=== PATIENT | female | born 1950 | race Caucasian/White ===

== ENCOUNTER → 2021-12-23 13:11 | Outpatient (CLI) | payer MEDICARE, SELFPAY | PROVIDERS: PCP Family Medicine; Visit Provider Internal Medicine | DX: R00.1 Bradycardia, unspecified (principal); R94.31 Abnormal electrocardiogram [ECG] [EKG]; E11.69 Type 2 diabetes mellitus with other specified complication; E78.5 Hyperlipidemia, unspecified; Z86.79 Personal history of other diseases of the circulatory system | CPT/HCPCS: 93225; 93226 ==

== ENCOUNTER → 2022-01-05 07:42 | Outpatient (CLI) | payer MEDICARE, SELFPAY ==
--- NOTE | 2022-01-05 | CA_ITS ---
APPROVED REPORT Exam: Pharmacologic Technologist: Cherie Huff Ht: 5 ft 4 in Wt: 261 lbs BSA: 2.19 m2 HR: 49 bpm BP: 121/54 mmHg Indications: Abnormal ekg Medical History Medications: Atorvastatin,,,,, Citalopram,,,,, Nexium,,,,, Calcium,,,,, Vitamin D3-Vitamin K,,,,, Stress Test Details Test: LEXISCAN HR Resting HR: 49 bpm Max Heart Rate (APMHR): 150.390391 bpm Max HR Achieved: 71 bpm Target HR (85% APMHR): 127.000715 bpm % of APMHR: 47.33 Recovery HR: 55 bpm BP Resting BP: 121.0/54.0 mmHg Max BP: 130.0/52.0 mmHg Recovery BP: 126.0/54.0 mmHg ECG Resting ECG: Sinus bradycardia, short OR interval, PAC Clinical Exercise duration: 04:14 min Highest Stage Achieved: Exercise capacity: 1.0 METs Stress ECG Conclusion Symptoms: Shortness of air, posterior neck discomfort, brief pain in left jaw. Arrhythmias/Ectopy: None ST-T Changes: No significant changes. Conclusion: Unremarkable Lexiscan stress. Myoview images reported separately. Test Summary REST . . . . . . . Resting REST 00:37 . . 49 . 121/ 54 . . Stage 1 . . . . . . . Myoview Injected Stage 1 01:00 . . 69 . . . . Stage 2 . . . . . . . chest tightness Stage 2 01:00 . . 60 . . . . Stage 3 01:00 . . 55 . 130/ 52 . . Stage 4 01:00 . . 52 . 122/ 53 . . Stage 4 01:14 . . 52 . 120/ 58 . Stop exercise at 04:14 RECOVERY 01:00 . . 51 . . . . RECOVERY 02:00 . . 54 . 121/ 56 . . RECOVERY 03:00 . . 55 . 126/ 54 . . RECOVERY 03:19 . . 54 . 126/ 54 . . Electronically signed by : Benny Lynch MD 01/05/2022 19:35:25
--- NOTE | 2022-01-05 07:42 | NM_ITS ---
APPROVED REPORT Exam: Nuclear Stress Test Indication: Abnormal EKG, DM, High cholesterol Patient Location: Outpatient Stress Tech: Cherie Huff NM Tech:Shae Schrader, ARRT, RT (R)(N) Ht: 5 ft 4 in Wt: 260 lbs Bra Size: 48D HR: 49 bpm BP: 121/54 mmHg BSA: 2.19 m2 BMI: 44.6 History: Abnormal EKG, DM, High cholesterol Procedure: Patient received a 0.4 mg of intravenous Lexiscan, resting heart rate 49 bpm, resting blood pressure 121/54 mmHg, with Lexiscan maximum heart rate achived was 71 bpm which is Less than 85 % of the maximum predicted heart rate and blood pressure was 130/52 mmHg. With Lexiscan, patient denied any complaint of chest pain. Electrocardiogram Resting electrocardiogram shows sinus rhythm, with Lexiscan there is less than 1.[address] segment depression noted from the baseline EKG. The EKG portion of the Lexiscan is nondiagnostic. Cardiac Stress and Resting SPECT Images: Cardiac Stress and Resting SPECT images were obtained using technetium 99m Myoview 29.4 mCi stress and 9.97 mCi at rest. Patient unable to lay on stomach for prone images due to hip pain. Gated SPECT for analysis of segmental wall motion and calculation of the ejection fraction also done. Cardiac stress and respiratory show fixed defect in the anterior wall with normal contractility gated SPECT is likely secondary to soft tissue attenuation, however there is marked transient ischemic dilatation of the left ventricle seen raising the concerns for presence of balanced ischemia. Right ventricle is mildly enlarged with normal contractility. Computer derived ejection fraction is 53% with no regional wall motion abnormality. Conclusion: 1. The EKG portion of the Lexiscan is nondiagnostic. 2. No scintigraphic evidence of reversible ischemia seen, fixed defect in the anterior wall is likely secondary to soft tissue attenuation, however there is marked transient ischemic dilatation of the left ventricle seen, raising the concerns for presence of balanced ischemia and multivessel coronary disease, right ventricle is mildly enlarged with normal contractility. Computer derived ejection fraction is 53% with no regional wall motion abnormality. 3. Abnormal Lexiscan Myoview study. Electronically signed by : Benny Lynch MD 01/05/2022 19:51:21
--- NOTE | 2022-01-05 09:57 | HMH.ITSHM ---
Current Home Medications as stated by this patient Shaista Melton or hvac sales representative. []ESOMEPRAZOLE CITALOPRAM CALCIUM ATORVASTATIN
--- NOTE | 2022-01-05 10:04 | CA_ITS ---
APPROVED REPORT EXAM: Comprehensive 2D, Doppler, and color-flow Echocardiogram Licensed Electrician: Christine Spencer RVT Ht: 5 ft 4 in Wt: 261lbs BSA: 2.19 BP: 121/53 mmHg Indications: ABN EKG,HX WPW SYNDROME,DM,HTN,HLD,BRADYCARDIA 2D Dimensions LVOT 2.28 cm (M/F) 1.5-2.5 LA Volume 49.40 mL LA Volume Index 22.55 mL/m2 (M/F) 16-34 M-Mode Dimensions RVDd 2.42 cm (0.9-2.6) LA Diam 4.15 cm (1.9-4.0) LVDd 5.73 cm (3.5-5.7) Ao Diam 2.96 cm (2.0-3.7) LVDs 4.20 cm (3.5-5.7) IVSd 0.76 cm (0.6-1.1) PWd 1.02 cm (0.6-1.1) EF (Teich) 51.50% FS 26.70% EDV (Teich) 162.00 mL TAPSE 1.44 (<1.7) ESV (Teich) 78.60 mL LV Diastology E Decel Time 220.00 (160-240 msec) E/A Ratio 1.3 MED E' 7.00 (< 7 cm/sec) E'/MED E' Ratio 13.31 (>14) LAT E' 8.40 (<10 cm/sec) E/LAT E' Ratio 11.10 (>14) Aortic Valve AO Peak GR. 5.30 mmHg Mitral Valve MV E Max Lenny. 93.00 (40-130 cm/s) MV A Velocity 73.00 (40-130 cm/s) E/A Ratio 1.27 MV Decel. Time 220.00 (160-240 ms) MV PHT 64.00 ms Pulmonary Valve PV Peak Velocity 87.00 (50-150 cm/s) Left Ventricle Left atrium is normal size left ventricle is normal size, visually estimated ejection fraction 55% with no regional wall motion abnormality, diastolic parameters are inconclusive. Right Ventricle Right atrium and right ventricle are normal size and contractility. Aortic Valve Aortic valve is minimally thickened and fibrosed, there is no aortic stenosis or aortic insufficiency. Mitral Valve Mitral valve grossly normal, there is trace mitral regurgitation. Tricuspid Valve Tricuspid valve grossly normal, there is trace tricuspid regurgitation, tricuspid regurgitation jet velocity is inadequate for calculation of the right ventricular systolic pressure. Pulmonic Valve Pulmonic valve is poorly visualized. Great Vessels Aortic root is normal size. Inferior vena cava normal size normal inspiratory collapse. Pericardium No significant pericardial effusion. Conclusion 1. Normal left ventricular size, preserved left ventricular systolic function, visually estimated ejection fraction 55% with no regional wall motion abnormality, diastolic parameters are inconclusive for the study. 2. Trace mitral and tricuspid regurgitation. 3. No significant pericardial effusion. 4. Inferior vena cava normal size with normal inspiratory collapse. Electronically signed by : Benny Lynch MD 01/05/2022 19:08:56
== END ==
PROVIDERS: PCP Family Medicine; Visit Provider Internal Medicine
DX: E78.5 Hyperlipidemia, unspecified; R00.1 Bradycardia, unspecified; R94.31 Abnormal electrocardiogram [ECG] [EKG]; Z86.79 Personal history of other diseases of the circulatory system; E11.69 Type 2 diabetes mellitus with other specified complication
CPT/HCPCS: 78452; 93017; 93306; A9502; J2785

== ENCOUNTER 2022-01-22 07:19 | Day surgery (SDC) | payer MEDICARE, SELFPAY ==
[2022-01-22] VITALS (14 sets, daily range): BP systolic 100–146; BP diastolic 51–72; PULSE 44–66; RESP 16–19; TEMP 36.9; O2SAT 95–100; BMI 45.3
--- NOTE | 2022-01-22 07:27 | IR_ITS ---
APPROVED REPORT Patient Location: Outpatient Tunnel Miner: MERCED Madsen RT (R) PROCEDURES Left heart catheterization Left ventriculogram Selective coronary angiogram INDICATION Abnormal Myoview, Angina pectoris, Risk factors for coronary disease, Informed consent was obtained prior to the procedure. COMPLICATIONS NONE Estimated Blood Loss: LESS THAN 10 ML TECHNIQUE One percent lidocaine used to anesthetize the right anterior aspect of the wrist. The right radial artery was accessed via the Seldinger technique. A 6 Ivorian sheath was placed in the right radial artery. 2.5 mg of verapamil, 800 mcg of nitroglycerin, 1mg Lidocaine and 5000 U Heparin were given through the arterial sheath. The papa catheter was also used to perform left heart catheterization, left ventriculogram and selective coronary angiogram. At the end of the procedure the sheath was removed good hemostasis was achieved using Traclet band, patient was transferred to the postop holding area in stable condition. ANGIOGRAPHIC RESULTS The left main artery Normal The left anterior descending artery The initial injection had YANELI II flow however subsequent injections had YANELI-3 flow with mild 10% luminal irregularities The circumflex artery Dominant normal The right coronary artery Nondominant yet still large with mild diffuse 10% luminal irregularities The HADDAD ventriculogram reveals Slightly hyperdynamic at 70% The left ventricular end-diastolic pressure 20-25 mmHg IMPRESSION Slow flow down the coronary arteries consistent with endothelial dysfunction Mild nonflow limiting coronary artery disease with a component of diastolic dysfunction PLAN 1. Treatment of diastolic dysfunction and endothelial dysfunction which should complete alleviate patient's symptoms 2. Risk factor modification Electronically signed by : Martin Betancur MD 01/22/2022 10:21:32
== END 2022-01-22 13:41 | disposition home or self-care (01) ==
LOC: CATHLAB 07:20
PROVIDERS: PCP Family Medicine; Visit Provider Internal Medicine
DX: E11.69 Type 2 diabetes mellitus with other specified complication (principal); E66.01 Morbid (severe) obesity due to excess calories; E78.2 Mixed hyperlipidemia; R00.1 Bradycardia, unspecified; R94.31 Abnormal electrocardiogram [ECG] [EKG]; R94.39 Abnormal result of other cardiovascular function study; Z68.42 Body mass index [BMI] 45.0-49.9, adult; Z86.79 Personal history of other diseases of the circulatory system; I25.118 Atherosclerotic heart disease of native coronary artery with other forms of angina pectoris; I45.6 Pre-excitation syndrome
CPT/HCPCS: 93458; 99152; C1725; C1769; J1644; J2405; Q9967

== ENCOUNTER 2024-03-12 14:36 | Outpatient (CLI) | payer MEDICARE, SELFPAY ==
[2024-03-12 15:00] LABS: Basophils # 0.1 K/mm3 (0-0.2); Basophils % 0.8 % (0.1-2.0); Eosinophils # 0.3 K/mm3 (0.0-0.4); Eosinophils % 3.4 % (0.1-12.0); Hematocrit 42.8 % (37.0-47.0); Hemoglobin 14.2 g/dL (12.2-16.2); Lymphocytes % 40.3 % (10-50); Mean Corpuscular HGB Conc 33.2 g/dL (31.8-35.4); Mean Corpuscular Hemoglobin 31.1 pg (27.0-31.2); Mean Corpuscular Volume 93.7 fl (81-99); Monocytes # 0.4 K/mm3 (0.1-1.0); Monocytes % 5.5 % (1.7-9.3); Neutrophils # 3.7 K/mm3 (1.8-7.8); Platelet Count 218 K/mm3 (142-424); Red Blood Count 4.56 M/mm3 (4.20-5.40); Red Cell Distribution Width 14.5 % (11.5-17.5); White Blood Count 7.4 K/mm3 (4.8-10.8)
[2024-03-12 16:00] LABS: Alanine Aminotransferase 20 U/L (12-78); Albumin Level 4.4 g/dl (3.5-5.0); Alkaline Phosphatase 81 U/L (38-126); Anion Gap 8.7 mEq/L (5-15); Aspartate Amino Transferase 27 U/L (14-36); Bilirubin,Direct 0.3 mg/dl (0.0-0.4); Bilirubin,Indirect 0.4 mg/dL (0.0-0.9); Bilirubin,Total 0.7 mg/dl (0.2-1.3); Bilirubin,Unconjugated 0.4 mg/dL (0.0-1.1); Blood Urea Nitrogen 17 mg/dl (7-17); Calcium 9.5 mg/dl (8.4-10.2); Carbon Dioxide 32 mmol/L (22.0-30.0); Chloride 106 mmol/L (98-107); Cholesterol 192 mg/dl (140-200); Estimated Glomerular Filt Rate 71 ml/min (>60); GFR (African American) 85 ML/MIN (>60); Glucose 106 mg/dl (74-100); HDL Cholesterol 65 mg/dl (40-60); Magnesium 2.1 mg/dl (1.6-2.3); Potassium 4.7 mmoL/L (3.5-5.1); Sodium 142 mmol/L (136-145); Total Protein,Serum 7.1 g/dl (6.3-8.2); Triglycerides 194 mg/dl (30-150); VLDL Cholesterol 39 mg/dL (0-40)
[2024-03-12 16:20] LABS: Free T4 (Free Thyroxine) 0.92 ng/dl (0.78-2.19)
[2024-03-12 16:34] LABS: Thyroid Stimulating Hormone 0.02 uIU/mL (0.465-4.68)
== END 2024-03-12 23:59 | disposition home or self-care (01) ==
LOC: LAB 14:38
PROVIDERS: Visit Provider Nurse Practitioner
DX: R00.2 Palpitations (principal); R06.00 Dyspnea, unspecified; I25.10 Atherosclerotic heart disease of native coronary artery without angina pectoris; E66.01 Morbid (severe) obesity due to excess calories; Z68.42 Body mass index [BMI] 45.0-49.9, adult; E78.2 Mixed hyperlipidemia; Z86.79 Personal history of other diseases of the circulatory system; E78.5 Hyperlipidemia, unspecified; I10 Essential (primary) hypertension
CPT/HCPCS: 36415; 80048; 80061; 80076; 83735; 84439; 84443; 85025; 93270

== ENCOUNTER 2024-03-23 06:46 | Outpatient (CLI) | payer MEDICARE, SELFPAY ==
--- NOTE | 2024-03-23 | CA_ITS ---
APPROVED REPORT Exam: Pharmacologic Technologist: Sarahi Garcia, Ht: 5 ft 4 in Wt: 277 lbs BSA: 2.25 m2 HR: 57 bpm BP: 133/50 mmHg Rhythm: NSR Medical History Medications: Aspirin,,,,, Citalopram,,,,, Buspirone,,,,, Nexium,,,,, Lipitor,,,,, Ezetimbe,,,,, Cardiac Risk Factors: Hyperlipidemia, Diabetes (non-insulin) Stress Test Details Test: LEXISCAN HR Resting HR: 79 bpm Max Heart Rate (APMHR): 148 bpm Max HR Achieved: 82 bpm Target HR (85% APMHR): 126 bpm % of APMHR: 55 Recovery HR: 62 bpm BP Resting BP: 133/50 mmHg Max BP: 140/53 mmHg Recovery BP: 128.0/55.0 mmHg ECG Resting ECG: sinus bradycardia, frequent PACs, PVCs, low voltage QRS, short NC interval Stress ECG: No significant ST changes Arrhythmia: PACs, PVCs Clinical Exercise duration: 03:59 min Highest Stage Achieved: Stress ECG Conclusion During lexiscant pt experinced mild SOA and head discomfort. No CP noted. Frequent PACs and PVCs. No signfiicant ST changes. Conclusion: Unremarkable lexiscan stress. Myoview images reported separately. Test Summary REST . . . . . . . Sitting REST 03:56 . . 79 . 133/ 50 . . Stage 1 01:00 . . 72 . . . . Stage 2 01:00 . . 70 . . . . Stage 3 01:00 . . 61 . 140/ 53 . . Stage 4 00:59 . . 61 . 133/ 53 . Stop exercise at 03:59 RECOVERY 01:00 . . 59 . 119/ 55 . . RECOVERY 02:00 . . 62 . 119/ 55 . . RECOVERY 03:00 . . 59 . 128/ 55 . . RECOVERY 03:24 . . 57 . 128/ 56 . . Electronically signed by : Rebeca Lacy MD 03/27/2024 11:33:00
--- NOTE | 2024-03-23 06:47 | CA_ITS ---
APPROVED REPORT EXAM: Comprehensive 2D, Doppler, and color-flow Echocardiogram Toaster Element Repairer: Piper Hummel CRT Ht: 5 ft 4 in Wt: 277lbs BSA: 2.25 BP: 130/60 mmHg Indications: abn ekg, WPW, DM, HTN, HLD PREOP HIP 2D Dimensions LA Volume 59.80 mL LA Volume Index 26.00 mL/m2 (M/F) 16-34 M-Mode Dimensions RVDd 2.64 cm (0.9-2.6) LA Diam 3.99 cm (1.9-4.0) LVDd 5.68 cm (3.5-5.7) LVDs 3.89 cm (3.5-5.7) IVSd 1.79 cm (0.6-1.1) PWd 1.12 cm (0.6-1.1) EF (Teich) 58.80% FS 31.50% EDV (Teich) 158.80 mL TAPSE 2.32 (<1.7) ESV (Teich) 65.50 mL LV Diastology E Decel Time 257 (160-240 msec) E/A Ratio 1.17 MED A' 10.50 cm/s LAT A' 5.50 cm/s Aortic Valve AO Peak GR. 7.30 mmHg Mitral Valve MV A Velocity 66.0 (40-130 cm/s) E/A Ratio 1.17 Pulmonary Valve PV Peak Velocity 93.0 (50-150 cm/s) Tricuspid Valve TR P. Velocity 158.00 cm/s RAP Estimate 10.00 mmHg RVSP 20.00 mmHg Left Ventricle The left ventricle is normal size. The left ventricular systolic function is normal. The left ventricular ejection fraction is within the normal range. There is increased LV wall thickness. There is normal LV segmental wall motion. The left ventricular diastolic function is normal. LVEF is 55% Right Ventricle The right ventricle is normal size. The right ventricular systolic function is normal. Atria The left atrium is mildly dilated. The right atrium is mildly dilated. There is no Doppler evidence of interatrial shunt. Aortic Valve The aortic valve is mildly thickened. There is no aortic valvular stenosis. Trace aortic regurgitation. Mitral Valve The mitral valve is normal in structure. No evidence of mitral valve stenosis. Trace mitral regurgitation. Tricuspid Valve The tricuspid valve leaflets are thin and pliable. Trace tricuspid regurgitation. There is insufficient TR jet to estimate RVSP. Pulmonic Valve The pulmonary valve is normal in structure. Trace pulmonic regurgitation. Great Vessels The aortic root is normal in size. The ascending aorta is not well visualized. IVC is normal in size and collapses >50% with inspiration. Pericardium There is no pericardial effusion. Other Information Study Quality: Fair Conclusion Normal biventricular systolic function. Mild biatrial dilation. No significant valvular stenosis or regurgitation. Electronically signed by : Rebeca Lacy MD 03/27/2024 18:27:22
--- NOTE | 2024-03-23 06:49 | NM_ITS ---
APPROVED REPORT Exam: Nuclear Stress Test Indication: OBESITY, HYPERLIPIDEMIA, FATIGUE, PRE-OP Patient Location: Outpatient Stress Tech: Sarahi FREIRE Tech:Randa Brunner TERRIDiane RT (R)(N)(M) Ht: 5 ft 4 in Wt: 275 lbs Bra Size: C HR: 79 bpm BP: 133/50 mmHg BSA: 2.24 m2 TID: 1.62 BMI: 47.1 History: OBESITY, HYPERLIPIDEMIA, FATIGUE, PRE-OP PT COULD NOT LAY ON STOMACH FOR PRONE IMAGES Procedure: Patient received 0.4 mg of intravenous Lexiscan, resting heart rate 79 bpm, resting blood pressure 133/50 mmHg, with Lexiscan maximum heart rate achieved was 82 bpm which is % of the maximum predicted heart rate and blood pressure was 140/53 mmHg. With Lexiscan, patient denied any complaint of chest pain. Cardiac Stress and Resting SPECT Images: Cardiac Stress and Resting SPECT images were obtained using technetium 99m Myoview 32.1 mCi stress and 10.14 mCi at rest. The patient could not lie on her abdomen. Therefore, prone stress imaging could not be performed. This may affect the diagnostic interpretation of the study findings. Resting and stress imaging in supine positions demonstrate no evidence of fixed or reversible perfusion defects. There is increased transient ischemic dilatation ratio (TID 1.62), suggestive of possible multivessel disease or balanced ischemia. Gated imaging demonstrates normal global and regional LV systolic function. LVEF is calculated at 61%. Conclusion: No evidence of fixed or reversible perfusion defects. There is increased transient ischemic dilatation ratio (TID 1.62), suggestive of possible multivessel disease or balanced ischemia. Gated imaging demonstrates normal global and regional LV systolic function. LVEF is calculated at 61%. Electronically signed by : Rebeca Lacy MD 03/27/2024 11:34:47
[2024-03-23] MEDS: SODIUM CHLORIDE 0.9% 10ML SYR (RAD ONLY) 10 ML IV ×2 (07:30→09:00)
[2024-03-23] MEDS: REGADENOSON 0.4MG/5ML SYRINGE 0.400000000000000022 MG IV (09:00)
[2024-03-23] MEDS: ISOTOPE MYOVIEW (PER STUDY) 1 DOSE IV (09:54)
== END 2024-03-23 23:59 | disposition home or self-care (01) ==
LOC: RAD 06:46
PROVIDERS: Visit Provider Nurse Practitioner
DX: R00.2 Palpitations (principal); R06.00 Dyspnea, unspecified; R94.31 Abnormal electrocardiogram [ECG] [EKG]
CPT/HCPCS: 78452; 93017; 93018; 93306; A9502; J2785

== ENCOUNTER 2024-04-24 08:00 | Day surgery (SDC) | payer MEDICARE, SELFPAY ==
[2024-04-24] VITALS (13 sets, daily range): BP systolic 92–182; BP diastolic 39–83; PULSE 41–58; RESP 16–18; TEMP 36.6–36.8; O2SAT 92–100; BMI 104.4; BMI 47.3
--- NOTE | 2024-04-24 07:08 | IR_ITS ---
APPROVED REPORT Patient Location: Outpatient PROCEDURES Left heart catheterization Left ventriculogram Selective coronary angiogram INDICATION Preoperative evaluation, Abnormal stress test Informed consent was obtained prior to the procedure. COMPLICATIONS NONE Estimated Blood Loss: LESS THAN 10 ML TECHNIQUE One percent lidocaine used to anesthetize the right anterior aspect of the wrist. The right radial artery was accessed via the Seldinger technique. A 6 Greek sheath was placed in the right radial artery. 2.5 mg of Verapamil, 800 mcg of nitroglycerin, 1mg Lidocaine and 5000 U Heparin were given through the arterial sheath. The papa catheter was also used to perform left heart catheterization, left ventriculogram and selective coronary angiogram. At the end of the procedure the sheath was removed good hemostasis was achieved using Traclet band, patient was transferred to the postop holding area in stable condition. ANGIOGRAPHIC RESULTS The left main artery Normal The left anterior descending artery Mild proximal and mid vessel 10% luminal regularities The circumflex artery Dominant mild 10% luminal irregularities The right coronary artery Nondominant mild 10% luminal irregularities The HADDAD ventriculogram reveals Normal 65% The left ventricular end-diastolic pressure 20 mmHg IMPRESSION Mild nonflow limiting luminal regularities as described above Normal ejection fraction Mildly elevated LVEDP PLAN 1. Patient is alone acceptable risk to proceed with elective hip surgery 2. Continue medical management Electronically signed by : Martin Betancur MD 04/24/2024 10:46:20
[2024-04-24] MEDS: LIDOCAINE 1% 10ML MDV 20 ML IJ (10:30)
[2024-04-24] MEDS: HEPARIN 1,000 UNITS/ML 10ML VIAL (CATH LAB) 10000 UNIT IV (10:30)
[2024-04-24] MEDS: HEPARIN 1,000 UNITS/500ML NS (CATH LAB) 3000 UNIT IV (10:30)
[2024-04-24] MEDS: 0.9 % SODIUM CHLORIDE 500 ML 25 ML IV (10:30)
[2024-04-24] MEDS: NITROGLYCERIN 800MCG/8ML SYR (CATH LAB) 800 MCG IA (10:31)
[2024-04-24] MEDS: diphenhydrAMINE 50MG/ML VIAL 50 MG IV (10:31)
[2024-04-24] MEDS: VERAPAMIL 2.5MG/ML 2ML VIAL 2.5 MG IV (10:31)
[2024-04-24 10:37] LABS: Basophils % 0.5 % (0.1-2.0); Eosinophils # 0.1 K/mm3 (0.0-0.4); Eosinophils % 1.3 % (0.1-12.0); Hematocrit 40.3 % (37.0-47.0); Lymphocytes # 2.4 K/mm3 (0.7-4.5); Lymphocytes % 32.9 % (10-50); Mean Corpuscular HGB Conc 32.3 g/dL (31.8-35.4); Mean Corpuscular Hemoglobin 30.6 pg (27.0-31.2); Mean Corpuscular Volume 94.7 fl (81-99); Mean Platelet Volume 9.4 fl (7.4-10.4); Monocytes # 0.6 K/mm3 (0.1-1.0); Monocytes % 8.3 % (1.7-9.3); Neutrophils # 4.1 K/mm3 (1.8-7.8); Platelet Count 206 K/mm3 (142-424); Red Blood Count 4.25 M/mm3 (4.20-5.40); Red Cell Distribution Width 14.8 % (11.5-17.5); White Blood Count 7.2 K/mm3 (4.8-10.8)
[2024-04-24] MEDS: MIDAZOLAM HCL 1MG/1ML 5ML VIAL 1 MG IV (10:44)
[2024-04-24] MEDS: FENTANYL 100MCG/2ML VIAL 50 MCG IV (10:44)
[2024-04-24 10:52] LABS: Chloride 106 mmol/L (98-107); Potassium 3.7 mmoL/L (3.5-5.1); Sodium 139 mmol/L (136-145)
[2024-04-24 10:55] LABS: Blood Urea Nitrogen 20 mg/dl (7-17); Creatinine Clearance Estimated 44 mL/min (50-200); Estimated Glomerular Filt Rate 62 ml/min (>60); GFR (African American) 74 ML/MIN (>60)
[2024-04-24 10:56] LABS: Anion Gap 9.7 mEq/L (5-15); Calcium 8.9 mg/dl (8.4-10.2); Carbon Dioxide 27 mmol/L (22.0-30.0); Glucose 113 mg/dl (74-100)
[2024-04-24] MEDS: IOPAMIDOL-370 (76%);100ML BOTTLE 50 ML IV (13:28)
== END 2024-04-24 14:12 | disposition home or self-care (01) ==
PROVIDERS: PCP Family Medicine; Visit Provider Internal Medicine
DX: I25.10 Atherosclerotic heart disease of native coronary artery without angina pectoris (principal); R94.39 Abnormal result of other cardiovascular function study; E11.9 Type 2 diabetes mellitus without complications; E78.5 Hyperlipidemia, unspecified; R94.31 Abnormal electrocardiogram [ECG] [EKG]; Z79.899 Other long term (current) drug therapy; E66.01 Morbid (severe) obesity due to excess calories; Z68.42 Body mass index [BMI] 45.0-49.9, adult; I45.6 Pre-excitation syndrome
CPT/HCPCS: 80048; 85025; 93458; 99152; C1725; C1769; J1644; Q9967